=== PATIENT | male | born 2000 | race Caucasian/White ===

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

== ENCOUNTER 2023-08-20 15:56 | Outpatient (AMB) | payer BC, SELFPAY ==
--- NOTE | 2023-08-20 16:10 | A.OFFPC_ITS ---
Vital Signs 08/20/23 16:36 Height 5 ft 7.32 in Weight 163 lb 6 oz BMI 25.3 BP 128/70 Blood Pressure Location Lt brachial Position Sitting Pulse 65 Pulse Source Pulse Oximeter Pulse Oximetry (%) 97 Oxygen Delivery Method Room Air Intake Visit Reasons: New patient-Requesting physical Intake Note: MECHANIC CHIEF transfering care from Dr. Candy Whitaker, here to establish care with new PCP. Pt requesting a PE. Associate Financial Advisor Required: No Accompanied by: Self / Same As Patient Allergies No Known Allergies Allergy (Verified 08/20/23 17:06) Medication List - Last Reconciled 08/20/23 by Ang Rangel PA-C albuterol sulfate 90 mcg/actuation 2 puffs inhalation Q4-6H PRN montelukast 10 mg PO DAILY Tobacco use date assessed: 08/20/23 Dental Screening Dental Screen Date: 08/20/23 Did you have a dental visit in the last 12 months?: Yes Did you have a dental problem in the last 6 months where you did not have access to dental care?: No Was dental information given to patient?: Patient has dentist HPI New patient-Requesting physical HPI Details Patient is a 22-year-old male here today for new patient annual physical. Previous PCP was at a pediatrics office. Patient has a past medical history significant for mild persistent asthma. 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 .. Asthma: He reports his asthma is fairly well controlled, reports needing to use his albuterol inhaler or allergy medication many months. Vaccines: Up-to-date with COVID vaccine, tetanus vaccine, PFSH Medical History Deviated septum Mild persistent asthma Social History (Updated 08/20/23 @ 17:09 by Ang Rangel PA-C) Housing: House Alcohol intake: never Patient Tobacco Use Status: Never used Tobacco e-Cigarette/Vaping Use: Never Used service: No Current occupational status: employed Current occupation: [employer] Cognitive needs: No Hearing needs: No Vision needs: No Questionnaire PHQ-9 Over the last 2 weeks, how often have you been bothered by any of the following problems? 1. Little interest or pleasure in doing things: not at all 2. Feeling down, depressed, or hopeless: not at all 3. Trouble falling or staying asleep, or sleeping too much: not at all 4. Feeling tired or having little energy: not at all 5. Poor appetite or overeating: not at all 6. Feeling bad about yourself - or that you are a failure or have let yourself or your family down: not at all 7. Trouble concentrating on things, such as reading the newspaper or watching television: not at all 8. Moving or speaking so slowly that other people could have noticed. Or the opposite - being so fidgety or restless that you have been moving around a lot more than usual: not at all 9. Thoughts that you would be better off or of hurting yourself in some way: not at all Total score: 0 Depression Screening Interpretation: Negative Depression Screening Done: Yes 47630 - PHQ-9 Billing: Yes Source: Developed by Drs. Taj Foster, Caroline Garcia, David Lynn and colleagues, with an educational maranda from [employer]. Thrive Questionnaire Date Thrive assessed: 08/20/23 I am a: Patient What is your living situation today?: I have a steady place to live Within the past 12 months, did the food you bought not last and you didn't have the money to get more?: Never true Within the past 12 months, did you worry whether your food would run out before you got money to buy more?: Never true Do you have trouble paying for medicines?: No Do you have trouble getting transportation to medical appointments?: No Do you have trouble paying your heating and electricity bill?: No Do you have trouble taking care of your child, family member or friend?: No Do you have trouble with day-to-day activities such as bathing, preparing meals, shopping, managing finances, etc.?: No Are you currently unemployed and looking for a job?: No Are you interested in more education?: No Please select the resources that you would like help with: None Currently or been in a relationship where the following occur: no concerns reported AUDIT C Alcohol Use Questionnaire (AUDIT-C) 1. How often do you have a drink containing alcohol?: Never 3. How often do you have six or more drinks on one occasion?: Never Total Score: 0 XENA-7 AMB Questionnaire XENA-7 Date XENA - 7 assessed: 08/20/23 Feeling nervous, anxious, or on edge: 0 = Not at all Not being able to stop or control worryin = Not at all Worrying too much about different things: 0 = Not at all Trouble relaxin = Not at all Being so restless that it is hard to sit still: 0 = Not at all Becoming easily annoyed or irritable: 0 = Not at all Feeling afraid as if something awful might happen: 0 = Not at all Total XENA-7 score (0-4 normal; 5-9 mild; 10-14 moderate; 15-21 severe): 0 Source: Developed by Drs. Taj Foster, Caroline Garcia, David miller nd colleagues, with an educational maranda from [employer]. XENA-7 Assessment Billing XENA-7 Assessment Tool: XENA-7 Assessment 23675 ACT Questionnaire In the past 4 weeks, how much of the time did your asthma keep you from getting as much done at work, school or at home?: None of the time During the past 4 weeks, how often have you had shortness of breath?: Not at all During the past 4 weeks, how often did your asthma symptoms wake you up at night or earlier than usual in the morning?: Not at all During the past 4 weeks, how often have you had to use your rescue inhaler or nebulizer medication?: Not at all How would you rate your asthma control during the past 4 weeks?: Completely controlled ACT Interpretation: Negative Score: 25 Review of Systems Const Denies body aches, Denies chills, Denies excessive sweating, Denies fatigue, Denies fever(s) and Denies headache(s) Eyes Denies blurry vision ENT Denies dysphagia, Denies vertigo, Denies dizziness, Denies headache(s), Denies hearing loss and Denies tinnitus Card Denies chest pain, Denies chest pain with activity, Denies syncope, Denies irregular heart rhythm and Denies dyspnea Resp Denies chest congestion, Denies cough, Denies hemoptysis, Denies dyspnea and Denies wheezing GI Denies abdominal pain, Denies melena, Denies hematochezia, Denies coffee ground emesis, Denies dysphagia, Denies diarrhea, Denies nausea and Denies vomiting Denies difficulty urinating, Denies dysuria, Denies urinary frequency, Denies urinary hesitancy and Denies urinary urgency Musc Denies arthralgias, Denies limited range of motion, Denies muscle cramps and Denies muscle weakness Skin/Breast Denies rash and Denies skin ulcer Neuro Denies Abnormal speech present, Denies confusion, Denies vertigo, Denies dizziness, Denies syncope, Denies headache(s), Denies memory loss and Denies seizure-like activity Psych Denies anxiety, Denies confusion, Denies depression, Denies memory loss, Denies panic attacks and Denies paranoia Endo Denies excessive sweating, Denies fatigue, Denies flushing, Denies polydipsia and Denies polyuria Aller/Immun Denies wheezing Physical exam (Primary Care) Vital Signs: Last Vital Signs Pulse 65 08/20/23 16:36 BP 128/70 08/20/23 16:36 Pulse Ox 97 08/20/23 16:36 Oxygen Delivery Method Room Air 08/20/23 16:36 BMI result Body Mass Index 25.3 Tobacco/Smoking Status: Tobacco use Status Tobacco use date assessed 08/20/23 08/20/23 16:45 Patient Tobacco Use Status Never used Tobacco 08/20/23 17:09 e-Cigarette/Vaping Use Never Used 08/20/23 17:09 PHQ-9: PHQ-9 Score PHQ-9: Total score 0 08/20/23 17:12 Depression Screening Interpretation: Negative Thrive Assessment: Date of Thrive Assessment Date Thrive assessed 08/20/23 08/20/23 16:42 Currently or been in a relationship where the following occur: no concerns reported Const General: cooperative, comfortable, no acute distress, alert and awake; No confusion Orientation/consciousness: oriented to person, oriented to place, patient oriented x3 and No confusion HENMT Head: Yes normocephalic Ears: external ears normal and TM's normal bilaterally Face and sinus: No sinus tenderness Mouth: Normal oral and palatal mucosa present and tongue normal Teeth and gingiva: dentition normal and gingiva normal Throat: Yes posterior oropharynx normal, Yes tonsils normal and Yes uvula midline Eyes Conjunctivae: conjunctivae normal Sclerae: sclerae normal Pupils: Equal, round and reactive pupils present EOM: EOMs intact bilaterally Direct Ophthalmoscopy: No no photophobia Neck Neck: Yes no lymphadenopathy, No tender and Yes no JVD Thyroid: Thyroid normal Carotids: no bruits Chest Chest palpation & inspection: no tenderness Resp Effort & Inspection: normal respiratory effort, no audible wheezes, not labored and no stridor Auscultation: no crackles, no rales, no rhonchi and no wheezes Cardio Jugular venous distension: no JVD Rate: regular rate, not bradycardic and not tachycardic Rhythm: regular rhythm Bruits: no carotid bruits Peripheral pulses: Peripheral pulses 2+ throughout GI Inspection: Yes normal to inspection, No abdominal wall ecchymosis and No visible herniation Palpation (GI): Soft to palpation, nontender, no guarding, not rigid and No hepatosplenomegaly present Auscultation: normoactive bowel sounds General: Yes no CVA tenderness Back/Spine/Pelvis Back: no CVA tenderness and No back tenderness Cervical Spine: cervical ROM normal Thoracic/Lumbar Spine: thoracic and lumbar spine normal to inspection, straight leg raise negative bilaterally, No thoraco-lumbar ROM limited and No lumbar spinal tenderness Skin Lesions: no lesions Rashes: no rashes Wounds: no wounds Neuro General: oriented to person, oriented to place, patient oriented x3, CN's II-XI intact bilaterally and No confusion Cranial nerves: Yes Equal, round and reactive pupils present and Yes Normal accommodation reflex present Cognition (Neuro): normal cognition Speech: No Abnormal speech present Gait exam (Neuro): Normal gait present Motor exam (neuro): 5/5 motor strength present throughout Extrem Right upper extremity: full ROM; no cyanosis Left upper extremity: full ROM; no cyanosis Right lower extremity: no edema Left lower extremity: no edema Psych Appearance: grossly normal Mental Status: mental status grossly normal Affect: normal affect Attitude: cooperative Thought process: Normal thought process present Assessment and Plan Assessment & Plan (1) Annual physical exam: Code(s): Z00.00 - Encounter for general adult medical examination without abnormal findings (2) Mild persistent asthma: Comment: when younger then seemed resolved but developed sxs again in fall 2019 Code(s): J45.30 - Mild persistent asthma, uncomplicated Qualifiers: Asthma complication type: uncomplicated Qualified Code(s): J45.30 - Mild persistent asthma, uncomplicated Plan: As per HPI patient's asthma seems to be completely controlled. He barely has to use albuterol inhaler. Otherwise denies any recent acute exacerbations or nighttime awakenings with a sthma symptoms. Coding Level of Care Code New Pt Prev Care 18-39yr(15732 Diagnoses Annual physical exam Z00.00 Mild persistent asthma without complication J45.30 Asthma complication type: uncomplicated Additional Codes XENA-7 Assessment Billing - XENA-7 Assessment Tool: XENA-7 Assessment 82211 ([id number])
[2023-08-20 16:36] VITALS: BP 128/70; PULSE 65; O2SAT 97; BMI 25.3
== END 2023-08-20 17:16 | disposition home or self-care (01) ==
PROVIDERS: PCP Physician Assistant; Visit Provider Physician Assistant
DX: Z00.00 Encounter for general adult medical examination without abnormal findings (principal); J45.30 Mild persistent asthma, uncomplicated
CPT/HCPCS: 99385

== ENCOUNTER 2024-08-05 14:45 | Outpatient (AMB) | payer BC, SELFPAY ==
[2024-08-05 15:06] VITALS: BP 152/86; PULSE 87; O2SAT 99; BMI 26.9
--- NOTE | 2024-08-05 15:06 | A.OFFPC_ITS ---
Vital Signs 08/05/24 15:06 Height 5 ft 7.32 in Weight 173 lb 2 oz BMI 26.9 BP 152/86 H Blood Pressure Location Lt brachial Position Sitting Pulse 87 Pulse Source Pulse Oximeter Pulse Oximetry (%) 99 Oxygen Delivery Method Room Air Intake Visit Reasons: Blood pressure check Allergies No Known Allergies Allergy (Verified 08/05/24 15:06) Medication List - Last Reconciled 08/05/24 by Ang Rangel PA-C albuterol sulfate 90 mcg/actuation 2 puffs inhalation Q4-6H PRN montelukast 10 mg PO DAILY Tobacco use date assessed: 08/20/23 Dental Screening Dental Screen Date: 08/20/23 HPI Blood pressure check HPI Details Patient is a 23-year-old male here today for follow up. Patient has a past medical history of asthma. He is noted to have elevated blood pressure readings recently. Does report having systolic readings 120s to 160s depending on the reading.. He admits to caffeine intake and sodium intake. He denies any chest discomfort, dizziness or syncopal episodes. He does report having low-grade headache though can not attributes to his blood pressure. [facility] Medical History Deviated septum Mild persistent asthma Social History Housing: House Alcohol intake: never Patient Tobacco Use Status: Never used Tobacco e-Cigarette/Vaping Use: Never Used service: No Current occupational status: employed Current occupation: [employer] Cognitive needs: No Hearing needs: No Vision needs: No Questionnaire Thrive Questionnaire Date Thrive assessed: 08/20/23 XENA-7 AMB Questionnaire XENA-7 Date XENA - 7 assessed: 08/20/23 Source: Developed by Drs. Taj Foster, Caroline Garcia, David Lynn and colleagues, with an educational maranda from [email or web address]. Review of Systems Const Reports headache(s) Eyes Denies loss of vision ENT Denies vertigo, Denies dizziness, Reports headache(s) and Denies sore throat Card Denies chest pain, Denies leg edema and Denies lightheadedness Resp Denies cough, Denies hemoptysis and Denies wheezing GI Denies abdominal pain, Denies melena, Denies constipation, Denies diarrhea and Denies vomiting Denies dysuria, Denies urinary frequency and Denies urinary urgency Musc Denies arthralgias, Denies joint swelling, Denies numbness and Denies tingling Neuro Denies Abnormal speech present, Denies behavioral changes, Denies vertigo, Denies dizziness, Reports headache(s), Denies loss of vision, Denies memory loss, Denies numbness and Denies tingling Psych Denies anxiety, Denies behavioral changes, Denies depression, Denies memory loss and Denies panic attacks Lio/Lymph Denies easy bleeding and Denies easy bruising Aller/Immun Denies wheezing Physical exam (Primary Care) Vital Signs: Last Vital Signs Pulse 87 08/05/24 15:06 BP 152/86 H 08/05/24 15:06 Pulse Ox 99 08/05/24 15:06 Oxygen Delivery Method Room Air 08/05/24 15:06 BMI result Body Mass Index 26.9 Tobacco/Smoking Status: Tobacco use Status Tobacco use date assessed 08/20/23 08/05/24 15:07 Patient Tobacco Use Status Never used Tobacco 08/05/24 15:07 e-Cigarette/Vaping Use Never Used 08/05/24 15:07 Thrive Assessment: Date of Thrive Assessment Date Thrive assessed 08/20/23 08/05/24 15:07 Const General: healthy appearing, no acute distress, alert and awake Nutritional Appearance: well nourished Orientation/consciousness: oriented to person, oriented to place and oriented to time HENMT Ears: TM's normal bilaterally General nose exam: Normal nasal mucous membranes and turbinates present Eyes Conjunctivae: conjunctivae normal Sclerae: sclerae normal Pupils: Equal, round and reactive pupils present Neck Neck: Yes no lymphadenopathy and Yes no JVD Thyroid: Thyroid normal Carotids: no bruits Resp Effort & Inspection: normal respiratory effort and not tachypneic Auscultation: no crackles, no rales, no rhonchi and no wheezes Cardio Rate: regular rate Rhythm: regular rhythm Heart sounds: no murmurs and normal S1 and S2 GI Palpation (GI): Soft to palpation, nontender, no hepatomegaly and no splenomegaly Auscultation: normal bowel sounds Skin General skin exam: no rashes or lesions noted and dry skin Neuro General: oriented to person, oriented to place and oriented to time Cranial nerves: Yes Equal, round and reactive pupils present Speech: No Abnormal speech present Gait exam (Neuro): Normal gait present Motor exam (neuro): no tremor noted Extrem Right upper extremity: full ROM Left upper extremity: full ROM Right lower extremity: full ROM; no edema Left lower extremity: full ROM; no edema Psych Mental Status: mental status grossly normal Speech and movement: Normal speech and movement present Affect: normal affect Attitude: cooperative Thought process: Normal thought process present Coding Level of Care Code Est Pt Level 3 (23802) Diagnoses Elevated blood pressure reading R03.0 Screening for diabetes mellitus (DM) Z13.1 Assessment & Plan Assessment & Plan (1) Elevated blood pressure reading: Code(s): R03.0 - Elevated blood-pressure reading, without diagnosis of hypertension Category: Medical Plan: Noted elevated blood pressure readings over last 2 months. Has not tried to reduce his caffeine or sodium as of yet. Will commence blood pressure monitoring and lifestyle dietary changes. Currently under some stress as he is in 1st year of his physical therapy program. If still elevated in the next 8 weeks will consider starting hydrochlorothiazide blood pressure control. (2) Screening for diabetes mellitus (DM): Code(s): Z13.1 - Encounter for screening for diabetes mellitus Category: Medical Plan: As per HPI
== END 2024-08-05 15:22 | disposition home or self-care (01) ==
PROVIDERS: PCP Physician Assistant; Visit Provider Physician Assistant
DX: R03.0 Elevated blood-pressure reading, without diagnosis of hypertension (principal); Z13.1 Encounter for screening for diabetes mellitus

== ENCOUNTER → 2024-09-30 09:55 | Outpatient (REF) | payer BC, SELFPAY ==
--- NOTE | 2024-09-30 09:59 | ECG_ITS ---
Test Reason : elevated BP Blood Pressure : */* mmHG Vent. Rate : 77 BPM Atrial Rate : 77 BPM P-R Int : 138 ms QRS Dur : 90 ms QT Int : 386 ms P-R-T Axes : 69 28 12 degrees QTcB Int : 436 ms Normal sinus rhythm with sinus arrhythmia Normal ECG No previous ECGs available Referred By: Ang Rangel Electronically Signed By: DEBBIE HOUGH
== END ==
LOC: HO.CARD 09:55
PROVIDERS: PCP Physician Assistant; Visit Provider Physician Assistant
DX: R03.0 Elevated blood-pressure reading, without diagnosis of hypertension (principal)
CPT/HCPCS: 93005; 96127

== ENCOUNTER → 2024-09-30 09:59 | Outpatient (BNV) | payer BC, SELFPAY | PROVIDERS: PCP Physician Assistant; Visit Provider Internal Medicine | DX: I49.9 Cardiac arrhythmia, unspecified (principal) | CPT/HCPCS: 93010 ==

== ENCOUNTER 2024-09-30 10:42 | Outpatient (AMB) | payer BC, SELFPAY ==
--- NOTE | 2024-09-30 10:52 | A.OFFPC_ITS ---
Vital Signs 09/30/24 10:56 Height 5 ft 7.32 in Weight 179 lb BMI 27.8 BP 122/60 Blood Pressure Location Lt brachial Position Sitting Pulse 80 Pulse Source Pulse Oximeter Pulse Oximetry (%) 98 Oxygen Delivery Method Room Air Intake Visit Reasons: f/u Blood pressure Electrical Controls Assembler Required: No Accompanied by: Self / Same As Patient Allergies No Known Allergies Allergy (Verified 09/30/24 11:06) Medication List - Last Reconciled 09/30/24 by Ang Rangel PA-C albuterol sulfate 90 mcg/actuation 2 puffs inhalation Q4-6H PRN hydrochlorothiazide 12.5 mg PO DAILY 90 days montelukast 10 mg PO DAILY Tobacco use date assessed: 09/30/24 Dental Screening Dental Screen Date: 09/30/24 Did you have a dental visit in the last 12 months?: Yes Did you have a dental problem in the last 6 months where you did not have access to dental care?: No Was dental information given to patient?: Patient has dentist HPI f/u Blood pressure HPI Details The patient is a 23-year-old male presenting for a follow-up visit regarding the management of essential hypertension. Previously, the patient had elevated blood pressure readings, necessitating the initiation of hydrochlorothiazide therapy. Since starting the medication, the patient's blood pressure has improved significantly, with readings currently around 110-121/60-70 mmHg. The patient reported low-grade headaches before treatment, which have since resolved with the initiation of antihypertensive therapy. There is a noted family history of hypertension. No further concerns were reported regarding his current hypertension management. The patient has a history of asthma and uses an albuterol inhaler as needed. [facility] Medical History Deviated septum Mild persistent asthma Social History Housing: House Alcohol intake: never Patient Tobacco Use Status: Never used Tobacco e-Cigarette/Vaping Use: Never Used service: No Current occupational status: employed Current occupation: Evangelist Cognitive needs: No Hearing needs: No Vision needs: No Questionnaire PHQ-9 Over the last 2 weeks, how often have you been bothered by any of the following problems? 1. Little interest or pleasure in doing things: not at all 2. Feeling down, depressed, or hopeless: not at all 3. Trouble falling or staying asleep, or sleeping too much: not at all 4. Feeling tired or having little energy: not at all 5. Poor appetite or overeating: not at all 6. Feeling bad about yourself - or that you are a failure or have let yourself or your family down: not at all 7. Trouble concentrating on things, such as reading the newspaper or watching television: not at all 8. Moving or speaking so slowly that other people could have noticed. Or the opposite - being so fidgety or restless that you have been moving around a lot more than usual: not at all 9. Thoughts that you would be better off or of hurting yourself in some way: not at all Total score: 0 Depression Screening Interpretation: Negative Depression Screening Done: Yes 14018 - PHQ-9 Billing: Yes Source: Developed by Drs. Taj Foster, Caroline Garcia, David Lynn and colleagues, with an educational maranda from [employer]. Thrive Questionnaire Date Thrive assessed: 09/30/24 I am a: Patient What is your living situation today?: I have a steady place to live Within the past 12 months, did the food you bought not last and you didn't have the money to get more?: Never true Within the past 12 months, did you worry whether your food would run out before you got money to buy more?: Never true Do you have trouble paying for medicines?: No Do you have trouble getting transportation to medical appointments?: No Do you have trouble paying your heating and electricity bill?: No Do you have trouble taking care of your child, family member or friend?: No Do you have trouble with day-to-day activities such as bathing, preparing meals, shopping, managing finances, etc.?: No Are you currently unemployed and looking for a job?: No Are you interested in more education?: No Please select the resources that you would like help with: None Currently or been in a relationship where the following occur: No concerns reported THRIVE Score: 0 AUDIT C Alcohol Use Questionnaire (AUDIT-C) 1. How often do you have a drink containing alcohol?: Never 3. How often do you have six or more drinks on one occasion?: Never Total Score: 0 XENA-7 AMB Questionnaire XENA-7 Date XENA - 7 assessed: 09/30/24 Feeling nervous, anxious, or on edge: 0 = Not at all Not being able to stop or control worryin = Not at all Worrying too much about different things: 0 = Not at all Trouble relaxin = Not at all Being so restless that it is hard to sit still: 0 = Not at all Becoming easily annoyed or irritable: 0 = Not at all Feeling afraid as if something awful might happen: 0 = Not at all Total XENA-7 score (0-4 normal; 5-9 mild; 10-14 moderate; 15-21 severe): 0 Source: Developed by Drs. Taj Foster, Caroline Garcia, David Lynn and colleagues, with an educational maranda from [employer]. XENA-7 Assessment Billing XENA-7 Assessment Tool: XENA-7 Assessment 24455 Review of Systems Const Denies headache(s) Eyes Denies loss of vision ENT Denies vertigo, Denies dizziness, Denies headache(s) and Denies sore throat Card Denies chest pain, Denies leg edema and Denies lightheadedness Resp Denies cough, Denies hemoptysis and Denies wheezing GI Denies abdominal pain, Denies melena, Denies constipation, Denies diarrhea and Denies vomiting Denies dysuria, Denies urinary frequency and Denies urinary urgency Musc Denies arthralgias, Denies joint swelling, Denies numbness and Denies tingling Neuro Denies Abnormal speech present, Denies behavioral changes, Denies vertigo, Denies dizziness, Denies headache(s), Denies loss of vision, Denies memory loss, Denies numbness and Denies tingling Psych Denies anxiety, Denies behavioral changes, Denies depression, Denies memory loss and Denies panic attacks Lio/Lymph Denies easy bleeding and Denies easy bruising Aller/Immun Denies wheezing Physical exam (Primary Care) Vital Signs: Last Vital Signs Pulse 80 09/30/24 10:56 BP 122/60 09/30/24 10:56 Pulse Ox 98 09/30/24 10:56 Oxygen Delivery Method Room Air 09/30/24 10:56 BMI result Body Mass Index 27.8 Tobacco/Smoking Status: Tobacco use Status Tobacco use date assessed 09/30/24 09/30/24 11:02 Patient Tobacco Use Status Never used Tobacco 09/30/24 10:52 e-Cigarette/Vaping Use Never Used 09/30/24 10:52 PHQ-9: PHQ-9 Score PHQ-9: Total score 0 09/30/24 10:58 Depression Screening Interpretation: Negative Thrive Assessment: Date of Thrive Assessment Date Thrive assessed 09/30/24 09/30/24 10:58 Currently or been in a relationship where the following occur: No concerns reported Const General: healthy appearing, no acute distress, alert and awake Nutritional Appearance: well nourished Orientation/consciousness: oriented to person, oriented to place and oriented to time HENMT Ears: TM's normal bilaterally General nose exam: Normal nasal mucous membranes and turbinates present Eyes Conjunctivae: conjunctivae normal Sclerae: sclerae normal Pupils: Equal, round and reactive pupils present Neck Neck: Yes no lymphadenopathy and Yes no JVD Thyroid: Thyroid normal Carotids: no bruits Resp Effort & Inspection: normal respiratory effort and not tachypneic Auscultation: no crackles, no rales, no rhonchi and no wheezes Cardio Rate: regular rate Rhythm: regular rhythm Heart sounds: no murmurs and normal S1 and S2 GI Palpation (GI): Soft to palpation, nontender, no hepatomegaly and no splenomegaly Auscultation: normal bowel sounds Skin General skin exam: no rashes or lesions noted and dry skin Neuro General: oriented to person, oriented to place and oriented to time Cranial nerves: Yes Equal, round and reactive pupils present Speech: No Abnormal speech present Gait exam (Neuro): Normal gait present Motor exam (neuro): no tremor noted Extrem Right upper extremity: full ROM Left upper extremity: full ROM Right lower extremity: full ROM; no edema Left lower extremity: full ROM; no edema Psych Mental Status: mental status grossly normal Speech and movement: Normal speech and movement present Affect: normal affect Attitude: cooperative Thought process: Normal thought process present Coding Level of Care Code Est Pt Level 3 (86390) Diagnoses Primary hypertension I10 Hypertension type: primary hypertension Additional Codes XENA-7 Assessment Billing - XENA-7 Assessment Tool: XENA-7 Assessment 53948 ([id number]) PHQ-9 - 52812 - PHQ-9 Billing: Yes ([id number]) Assessment & Plan Assessment & Plan (1) HTN (hypertension): Code(s): I10 - Essential (primary) hypertension Category: Medical Qualifiers: Hypertension type: primary hypertension Qualified Code(s): I10 - Essential (primary) hypertension Plan: Continue hydrochlorothiazide for blood pressure control and reassess in six months. - Educate on maintaining a healthy lifestyle with attention to diet and exercise. - Obtain fasting blood work to assess kidney function and electrolytes before the next visit. Orders: Orders Microalbumin, Random (w Creat) Today I10 - Essential (primary) hypertension Comprehensive [place]. Panel Fast Today I10 - Essential (primary) hypertension Complete Blood Count no Diff Today I10 - Essential (primary) hypertension Medications: Refilled albuterol sulfate 90 mcg/actuation 2 puffs inhalation Q4-6H PRN 8.5 grams 2RF shortness of breath or wheezing J45.909 - Unspecified asthma, uncomplicated Discontinued montelukast Discontinued Reason: Doctor's Order 10 mg PO DAILY 30 tabs 5RF
[2024-09-30 10:56] VITALS: BP 122/60; PULSE 80; O2SAT 98; BMI 27.8
== END 2024-09-30 11:15 | disposition home or self-care (01) ==
PROVIDERS: PCP Physician Assistant; Visit Provider Physician Assistant
DX: I10 Essential (primary) hypertension (principal)

== ENCOUNTER 2025-03-30 15:34 | Outpatient (AMB) | payer BC, SELFPAY ==
--- OUTSIDE RECORDS SUMMARY | 2025-03-30 15:39 | XMS_ITS | Encounter Summary ---
Author Organization [facility] Address [address] [place] [id number] Phone Care Team Providers Care Promotions Specialist Name Role Phone Unavailable Primary Care Provider Unavailabl e Encounter Details Date Type Department Care Team (Late st Contact Info) Description 08/09/2016 Documentation [facility] Family Medicine [address] [place] [address] Family Medicine, Physician [address] [place] [address] Social History Tobacco Use Types Packs/Day Years Used Date Smoking Tobacco: Never Comments:Never smoker Sex and Gender Information Value Date Recorded Sex Assigned at Not on file Legal Sex Male 5:00 PM EDT Gender Identity Not on file Sexual Orientation Not on file documented as of this encounter Plan of Treatment Not on file documented as of this encounter Visit Diagnoses Not on filedocumented in this encounter
--- OUTSIDE RECORDS SUMMARY | 2025-03-30 15:39 | XMS_ITS | Clinical Summary ---
Author Organization [facility] Address [address] [place] [address] Care Team Providers Care Vegetable Farmer Name Role Phone Unavailable Primary Care Provider Unavailabl e Medications No known medications Social History Tobacco Use Types Packs/Day Years Used Date Smoking Tobacco: Never Smokeless Tobacco: Never Alcohol Use Standard Drinks/Week Comments Not Currently 0 (1 standard drink = 0.6 oz pur e alcohol) Sex and Gender Information Value Date Recorded Sex Assigned at Not on file Gender Identity Not on file Sexual Orientation Not on file Job Start Date Occupation Industry Not on file Not on file Not on file Last Filed Vital Signs Vital Sign Reading Time Taken Comments Blood Pressure - - Pulse - - Temperature - - Respiratory Rate - - Oxygen Saturation - - Inhaled Oxygen Concentration - - Weight 63.5 kg (140 lb) 06/14/2021 8:58 AM EDT Height 170.2 cm (5' 7 ) 06/14/2021 8:58 AM EDT Body Mass Index 21.93 06/14/2021 8:58 AM EDT Plan of Treatment Health Maintenance Due Date Last Done Comments Hepatitis B Vaccines (1 of 3 - 3-dose series) 2002 Hepatitis C Screening 2002 COVID-19 Vaccine (#1) 04/27/2003 Depression Screening 2014 Preventative Health Evaluation 2020 DTap / Tdap / Td (7 - Td or Tdap) 07/15/2024 07/15/2014, 11/13/2006, 05/18/2004, Additional history exists Influenza Vaccine (#1) 2025 8, 08/28/2017, 08/08/2016, Additional history exists Pneumococcal Vaccine Aged Out 05/24/2003, 03/11/2003, 2002 No longer eligible based on patient's age to complete this topic RSV Ped < 20 months Aged Out No longe r eligible based on patient's age to complete this topic
[2025-03-30 15:45] VITALS: BP 132/78; PULSE 95; O2SAT 98; BMI 27.8
--- NOTE | 2025-03-30 15:45 | A.OFFPC_ITS ---
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 Accompanied by: Self / Same As Patient Allergies No Known Allergies Allergy (Verified 03/30/25 16:28) Medication List - Last Reconciled 03/30/25 by Ang Rangel PA-C albuterol sulfate 90 mcg/actuation 2 puffs inhalation Q4-6H PRN hydrochlorothiazide 12.5 mg PO DAILY 90 days Tobacco use date assessed: 09/30/24 Dental Screening Dental Screen Date: 03/30/25 Did you have a dental visit in the last 12 months?: Yes Did you have a dental problem in the last 6 months where you did not have access to dental care?: No Was dental information given to patient?: Patient has dentist HPI Annual Exam HPI Details Patient is a 24-year-old male here today for annual physical. Patient has a past medical history significant for asthma and elevated blood pressure Hypertension: Blood pressure acceptable today in office. Asthma: Patient reports his asthma has been well controlled with only limited p.r.n. use of his albuterol inhaler. Vaccines: Needs up-to-date Tdap, up-to-date with flu and COVID vaccines [facility] Medical History Deviated septum Mild persistent asthma Social History (Updated 03/30/25 @ 16:31 by Ang Rangel PA-C) Housing: House Alcohol intake: never Patient Tobacco Use Status: Never used Tobacco e-Cigarette/Vaping Use: Never Used service: No Current occupational status: employed Current occupation: part time receptionist student Cognitive needs: No Hearing needs: No Vision needs: No Questionnaire PHQ-9 Over the last 2 weeks, how often have you been bothered by any of the following problems? 1. Little interest or pleasure in doing things: not at all 2. Feeling down, depressed, or hopeless: not at all 3. Trouble falling or staying asleep, or sleeping too much: not at all 4. Feeling tired or having little energy: not at all 5. Poor appetite or overeating: not at all 6. Feeling bad about yourself - or that you are a failure or have let yourself or your family down: not at all 7. Trouble concentrating on things, such as reading the newspaper or watching television: not at all 8. Moving or speaking so slowly that other people could have noticed. Or the op posite - being so fidgety or restless that you have been moving around a lot more than usual: not at all 9. Thoughts that you would be better off or of hurting yourself in some way: not at all Total score: 0 Depression Screening Interpretation: Negative Depression Screening Done: Yes 87818 - PHQ-9 Billing: Yes Source: Developed by Drs. Taj Foster, Caroline Garcia, David Lynn and colleagues, with an educational maranda from [employer]. Thrive Questionnaire Date Thrive assessed: 03/30/25 I am a: Patient What is your living situation today?: I have a steady place to live Within the past 12 months, did the food you bought not last and you didn't have the money to get more?: Never true Within the past 12 months, did you worry whether your food would run out before you got money to buy more?: Never true Do you have trouble paying for medicines?: No Do you have trouble getting transportation to medical appointments?: No Do you have trouble paying your heating and electricity bill?: No Do you have trouble taking care of your child, family member or friend?: No Do you have trouble with day-to-day activities such as bathing, preparing meals, shopping, managing finances, etc.?: No Are you currently unemployed and looking for a job?: No Are you interested in more education?: No Please select the resources that you would like help with: None Currently or been in a relationship where the following occur: No concerns reported THRIVE Score: 0 AUDIT C Alcohol Use Questionnaire (AUDIT-C) 1. How often do you have a drink containing alcohol?: Never 3. How often do you have six or more drinks on one occasion?: Never Total Score: 0 XENA-7 AMB Questionnaire XENA-7 Date XENA - 7 assessed: 03/30/25 Feeling nervous, anxious, or on edge: 3 = Nearly every day Not being able to stop or control worryin = More than half the days Worrying too much about different things: 3 = Nearly every day Trouble relaxin = Nearly every day Being so restless that it is hard to sit still: 1 = Several days Becoming easily annoyed or irritable: 1 = Several days Feeling afraid as if something awful might happen: 0 = Not at all Total XENA-7 score (0-4 normal; 5-9 mild; 10-14 moderate; 15-21 severe): 13 Source: Developed by Drs. Taj Foster, Caroline Garcia, David Lynn and colleagues, with an educational maranda from [employer]. XENA-7 Assessment Billing XENA-7 Assessment Tool: XENA-7 Assessment 19816 Review of Systems Const Denies body aches, Denies chills, Denies excessive sweating, Denies fatigue, Denies fever(s) and Denies headache(s) Eyes Denies blurry vision ENT Denies dysphagia, Denies vertigo, Denies dizziness, Denies headache(s), Denies hearing loss and Denies tinnitus Card Denies chest pain, Denies chest pain with activity, Denies syncope, Denies irregular heart rhythm and Denies dyspnea Resp Denies chest congestion, Denies cough, Denies hemoptysis, Denies dyspnea and Denies wheezing GI Denies abdominal pain, Denies melena, Denies hematochezia, Denies coffee ground emesis, Denies dysphagia, Denies diarrhea, Denies nausea and Denies vomiting Denies difficulty urinating, Denies dysuria, Denies urinary frequency, Denies urinary hesitancy and Denies urinary urgency Musc Denies arthralgias, Denies limited range of motion, Denies muscle cramps and Denies muscle weakness Skin/Breast Denies rash and Denies skin ulcer Neuro Denies Abnormal speech present, Denies confusion, Denies vertigo, Denies dizziness, Denies syncope, Denies headache(s), Denies memory loss and Denies sei zure-like activity Psych Denies anxiety, Denies confusion, Denies depression, Denies memory loss, Denies panic attacks and Denies paranoia Endo Denies excessive sweating, Denies fatigue, Denies flushing, Denies polydipsia and Denies polyuria Aller/Immun Denies wheezing Physical exam (Primary Care) Vital Signs: Last Vital Signs Pulse 95 03/30/25 15:45 BP 132/78 03/30/25 15:45 Pulse Ox 98 03/30/25 15:45 Oxygen Delivery Method Room Air 03/30/25 15:45 BMI result Body Mass Index 27.8 Tobacco/Smoking Status: Tobacco use Status Tobacco use date assessed 09/30/24 03/30/25 15:47 Patient Tobacco Use Status Never used Tobacco 03/30/25 15:47 e-Cigarette/Vaping Use Never Used 03/30/25 15:47 PHQ-9: PHQ-9 Score PHQ-9: Total score 0 03/30/25 15:47 Depression Screening Interpretation: Negative Thrive Assessment: Date of Thrive Assessment Date Thrive assessed 03/30/25 03/30/25 15:47 Currently or been in a relationship where the following occur: No concerns reported Const General: cooperative, comfortable, no acute distress, alert and awake; No confusion Orientation/consciousness: oriented to person, oriented to place, patient oriented x3 and No confusion HENMT Head: Yes normocephalic Ears: external ears normal and TM's normal bilaterally Face and sinus: No sinus tenderness Mouth: Normal oral and palatal mucosa present and tongue normal Teeth and gingiva: dentition normal and gingiva normal Throat: Yes posterior oropharynx normal, Yes tonsils normal and Yes uvula midline Eyes Conjunctivae: conjunctivae normal Sclerae: sclerae normal Pupils: Equal, round and reactive pupils present EOM: EOMs intact bilaterally Direct Ophthalmoscopy: No no photophobia Neck Neck: Yes no lymphadenopathy, No tender and Yes no JVD Thyroid: Thyroid normal Carotids: no bruits Chest Chest palpation & inspection: no tenderness Resp Effort & Inspection: normal respiratory effort, no audible wheezes, not labored and no stridor Auscultation: no crackles, no rales, no rhonchi and no wheezes Cardio Jugular venous distension: no JVD Rate: regular rate, not bradycardic and not tachycardic Rhythm: regular rhythm Bruits: no carotid bruits Peripheral pulses: Peripheral pulses 2+ throughout GI Inspection: Yes normal to inspection, No abdominal wall ecchymosis and No visible herniation Palpation (GI): Soft to palpation, nontender, no guarding, not rigid and No hepatosplenomegaly present Auscultation: normoactive bowel sounds General: Yes no CVA tenderness Back/Spine/Pelvis Back: no CVA tenderness and No back tenderness Cervical Spine: cervical ROM normal Thoracic/Lumbar Spine: thoracic and lumbar spine normal to inspection, straight leg raise negative bilaterally, No thoraco-lumbar ROM limited and No lumbar spinal tenderness Skin Lesions: no lesions Rashes: no rashes Wounds: no wounds Neuro General: oriented to person, oriented to place, patient oriented x3, CN's II-XI intact bilaterally and No confusion Cranial nerves: Yes Equal, round and reactive pupils present and Yes Normal accommodation reflex present Cognition (Neuro): normal cognition Speech: No Abnormal speech present Gait exam (Neuro): Normal gait present Motor exam (neuro): 5/5 motor strength present throughout Extrem Right upper extremity: full ROM; no cyanosis Left upper extremity: full ROM; no cyanosis Right lower extremity: no edema Left lower extremity: no edema Psych Appearance: grossly normal Mental Status: mental status grossly normal Affect: normal affect Attitude: cooperative Thought process: Normal thought process present Coding Level of Care Code Est Pt Prev Care 18-39y(67249) Diagnoses Annual physical exam Z00.00 Primary hypertension I10 Hypertension type: primary hypertension Mild persistent asthma without complication J45.30 Asthma complication type: uncomplicated Additional Codes XENA-7 Assessment Billing - XENA-7 Assessment Tool: XENA-7 Assessment 12728 ([id number]) PHQ-9 - 72508 - PHQ-9 Billing: Yes ([id number]) Assessment & Plan Assessment & Plan (1) Annual physical exam: Code(s): Z00.00 - Encounter for general adult medical examination without abnormal findings Category: Medical Plan: As per HPI (2) HTN (hypertension): Code(s): I10 - Essential (primary) hypertension Category: Medical Qualifiers: Hypertension type: primary hypertension Qualified Code(s): I10 - Essential (primary) hypertension Plan: Patient's blood pressure acceptable today in office, consistent with his use of hydrochlorothiazide. Goal blood pressure to remain below 140/90 (3) Mild persistent asthma: Comment: when younger then seemed resolved but developed sxs again in fall 2019 Code(s): J45.30 - Mild persistent asthma, uncomplicated Category: Medical Qualifiers: Asthma complication type: uncomplicated Qualified Code(s): J45.30 - Mild persistent asthma, uncomplicated Plan: Patient reports he only seldomly uses his albuterol inhaler. He denies any nighttime awakenings with asthma symptoms or recent asthma exacerbations. Orders: Orders TDaP Immunization Today Z23 - Encounter for immunization Medications: New Boostrix Tdap (diphth,pertus(acell),tetanus) 0.5 mL IM ONCE 0.5 mL 0RF NS Z23 - Encounter for immunization Refilled hydrochlorothiazide 12.5 mg PO DAILY 90 tabs 1RF 90 days R03.0 - Elevated blood-pressure reading, without diagnosis of hypertension albuterol sulfate 90 mcg/actuation 2 puffs inhalation Q4-6H PRN 8.5 grams 2RF shortness of breath or wheezing J45.909 - Unspecified asthma, uncomplicated Patient Instructions: Goal: Goal blood pressure to remain below 140/90 Barriers: Adherence to physical activity and healthy eating habits
== END 2025-03-30 17:30 | disposition home or self-care (01) ==
LOC: HO.HMCH 15:35
PROVIDERS: PCP Physician Assistant; Visit Provider Physician Assistant
DX: Z00.00 Encounter for general adult medical examination without abnormal findings (principal); I10 Essential (primary) hypertension; J45.30 Mild persistent asthma, uncomplicated; Z23 Encounter for immunization

== ENCOUNTER → 2025-03-30 15:34 | Outpatient (BNVA) | payer BC, SELFPAY | PROVIDERS: PCP Physician Assistant; Visit Provider Physician Assistant | DX: Z00.00 Encounter for general adult medical examination without abnormal findings (principal); I10 Essential (primary) hypertension; J45.30 Mild persistent asthma, uncomplicated; R03.0 Elevated blood-pressure reading, without diagnosis of hypertension; Z23 Encounter for immunization | CPT/HCPCS: 90471; 90715; 96127 ==

== ENCOUNTER 2025-04-25 09:52 | Outpatient (AMB) | payer BC, SELFPAY ==
--- NOTE | 2025-04-25 09:56 | MHC.OFFVIS ---
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 He is young LD 24-year-old male who last May started noticing significantly elevated blood pressures systolic blood pressure in the 170s. He was having symptoms of dizziness, sweating, had heavy feeling. Especially when he was doing heavy lifting for his exercise he would notice significant pain in both his ears and had unbearable headache. Patient since then has been diagnose with hypertension. Started on hydrochlorothiazide therapy at 12.5 mg daily. This is improved his symptoms however his blood pressure is not adequately controlled with systolic blood pressure still in the 140-150 range. He says he drinks enough fluid about a gal a day but also does not watch the salt intake in his diet. He has family history of hypertension in his paternal grandfather as well as paternal aunts but not at a young age. He denies any [id number]-kfm-ikuzqgd medications or any stimulant use. Denies any significant alcohol use or smoking. Patient has not had any workup for secondary hypertension. He does have deviated nasal septum history and says that it although he sleeps 8 hours a night he does feel headaches when he wakes up in the morning. He does also has some daytime tiredness. He also has significant amount of stress related to his course work for physical therapy. As a result he has been prescribed some antianxiety medications has been taking it and that is helping his anxiety although blood pressure still remains elevated. He denies any exertional chest pain or shortness of breath. Denies any prolonged palpitation irregular heartbeat. No orthopnea, PND, leg edema. 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 Cognitive needs: No Hearing needs: No Vision needs: No Review of Systems Const Denies chills, Denies daytime sleepiness, Denies fatigue, Denies fever(s), Denies frequent falls, Denies poor appetite, Denies snoring, Denies stops breathing during sleep, Denies weakness, Denies weight gain and Denies weight loss Eyes Denies loss of vision ENT Denies dizziness and Denies hearing loss Card Denies chest pain, Denies claudication, Denies leg edema, Denies lightheadedness, Denies palpitations, Denies dyspnea, Denies dyspnea on exertion and Denies orthopnea Resp Denies cough, Denies excessive phlegm production, Denies dyspnea, Denies dyspnea on exertion, Denies snoring and Denies wheezing GI Denies abdominal pain, Denies hematochezia, Denies change in bowel habits, Denies nausea and Denies vomiting Denies dysuria and Denies urinary frequency Musc Denies arthralgias, Denies muscle weakness, Denies numbness and Denies other (frequent falls) Skin/Breast Denies nail changes and Denies rash Neuro Denies Abnormal speech present, Denies dizziness, Denies frequent falls, Denies loss of vision, Denies memory loss, Denies numbness and Denies weakness Psych Denies depression and Denies memory loss Endo Denies fatigue and Denies palpitations Lio/Lymph Reports easy bruising and Reports other (anemia) Aller/Immun Denies wheezing Physical Exam Vital Signs: Last Vital Signs Pulse 69 04/25/25 10:07 BP 143/83 H 04/25/25 10:07 BMI result Body Mass Index 28.0 Const General: cooperative, comfortable, no acute distress, well developed, alert, awake and Physically active Nutritional Appearance: average body habitus and well nourished Orientation/consciousness: patient oriented x3 Limitations: no limitations HEENT Head: Yes normocephalic and Yes atraumatic Neck Neck: Yes trachea midline, Yes supple and Yes no JVD Resp Effort & Inspection: normal respiratory effort Auscultation: clear to auscultation bilaterally Cardio Jugular venous distension: no JVD Palpation: normal PMI Rate: regular rate Rhythm: regular rhythm Heart sounds: S1 normal heart sound present, S2 normal heart sound present, no click, no gallops, no murmurs and no rubs GI Auscultation: normal bowel sounds Skin General skin exam: no rashes or lesions noted Neuro General: patient oriented x3 and no focal motor deficits Speech: No Abnormal speech present Extrem General: Yes no clubbing, cyanosis or edema Psych Appearance: grossly normal Office Procedures EKG Details: EKG shows baseline wander with normal sinus rhythm with sinus arrhythmia otherwise normal EKG [id number], Complete Assessment & Plan Assessment & Plan (1) HTN (hypertension): Code(s): I10 - Essential (primary) hypertension Category: Medical Qualifiers: Hypertension type: primary hypertension Qualified Code(s): I10 - Essential (primary) hypertension Plan: Early-onset hypertension in young male without any obvious clear trigger or risk factors with possible family history and could represent early onset hypertension. However secondary causes for hypertension need to be ruled out especially endocrine causes as well as causes related to sleep related disorder in breathing. Also renal artery stenosis needs to be ruled out. Discussed with him about the same. He is currently not utilizing any hormones for weight building. Discussed with him about use of anabolic hormones. Importance of good blood pressure control and custodial was discussed to protect from end-organ damage. Would suggest an echocardiogram to evaluate LV structure and function to evaluate for LVH. His blood pressure is currently not well optimized and would suggest him to increase hydrochlorothiazide to 25 mg daily. Advised to monitor blood pressure at home and maintain a log. Will bring him back in 2 weeks for blood pressure check in the office. Goal blood pressure less than 120/80 was discussed with him. I have advised him to watch salt in his diet and also maintain adequate hydration. Understands agrees. Have ordered a home sleep study as well as renal duplex and hormonal studies to evaluate for secondary cause of hypertension. Will follow up in the clinic in 2 months time, sooner p.r.n.. Thank you for allowing me to partake in his care Orders: Orders Aldost/Renin Today I10 - Essential (primary) hypertension CA echo transthoracic complete Today I10 - Essential (primary) hypertension RT home sleep study Today I10 - Essential (primary) hypertension, R40.0 - Somnolence Metanephrines, Plasma Today I10 - Essential (primary) hypertension Cortisol Random Today I10 - Essential (primary) hypertension Aldosterone Today I10 - Essential (primary) hypertension TSH reflex Free T4 Today I10 - Essential (primary) hypertension US renal doppler Today I10 - Essential (primary) hypertension Medications: New hydrochlorothiazide 25 mg PO DAILY 30 tabs 5RF Discontinued hydrochlorothiazide Discontinued Reason: Doctor's Order 12.5 mg PO DAILY 90 days 90 tabs 1RF R03.0 - Elevated blood-pressure reading, without diagnosis of hypertension Coding Level of Care Code New Pt Level 4 (22780) Complex EM visit Add On G2211 Diagnoses Primary hypertension I10 Hypertension type: primary hypertension CPT Codes EKG - CPT: 06213-[id number], Complete ([id number])
[2025-04-25 09:57] VITALS: BP 140/70; PULSE 62; BMI 28.0
[2025-04-25 10:07] VITALS: BP 142/86; BP 143/83; PULSE 69; PULSE 71
--- OUTSIDE RECORDS SUMMARY | 2025-04-25 10:29 | XMS_ITS | Encounter Summary ---
Author Organization [facility] Address [address] [place] [phone] Phone Care Team Providers Care Claims Coordinator Name Role Phone Unavailable Primary Care Provider Unavailabl e Encounter Details Date Type Department Care Team (Late st Contact Info) Description 08/09/2016 [place]ation [facility] [place] [address] [place] [address] Family Medicine, Physician [address] [place] [address] Social History Tobacco Use Types [...]
--- OUTSIDE RECORDS SUMMARY | 2025-04-25 10:29 | XMS_ITS | Clinical Summary ---
Author Organization [facility] Address [address] [place] [address] Care Team Providers Care Food And Beverage Associate Name Role Phone Unavailable Primary Care Provider [...]
== END 2025-04-25 10:36 | disposition home or self-care (01) ==
LOC: HO.HCS 09:53
PROVIDERS: PCP Physician Assistant; Visit Provider Internal Medicine Cardiovascular Disease
DX: I10 Essential (primary) hypertension (principal)
CPT/HCPCS: 93010; 99204

== ENCOUNTER → 2025-04-25 09:52 | Outpatient (BNVA) | payer BC, SELFPAY | PROVIDERS: PCP Physician Assistant; Visit Provider Internal Medicine Cardiovascular Disease | DX: I10 Essential (primary) hypertension (principal) | CPT/HCPCS: 93005 ==

== ENCOUNTER 2025-04-27 10:25 | Outpatient (REF) | payer BC, SELFPAY ==
[2025-04-27 10:53] LABS: Hematocrit 45.0 % (42.0-52.0); Hemoglobin 15.9 g/dl (14.0-18.0); Mean Corpuscular HGB Conc 35.3 g/dl (31.0-36.0); Mean Corpuscular Hemoglobin 30.2 pg (27.0-33.0); Mean Corpuscular Volume 85.4 fL (80.0-98.0); NRBC Abs Auto 0.000 X10*3/uL (0.0-0.012); NRBC Pct Auto 0.0 /100WBC (0.0-0.2); Platelet Count 216 X10*3/uL (160-400); Red Blood Count 5.27 X10*6/uL (4.60-5.80); White Blood Count 6.7 X10*3/uL (4.8-10.8)
--- OUTSIDE RECORDS SUMMARY | 2025-04-27 11:05 | XMS_ITS | Clinical Summary ---
Author Organization [facility] Address [address] [place] [address] Care Team Providers Care Sap Developer Name Role Phone Unavailable Primary Care Provider [...]
[2025-04-27 11:26] LABS: Alanine Aminotransferase 44 U/L (0-40); Albumin Level 4.9 g/dL (3.5-5.0); Alkaline Phosphatase 58 U/L (39-117); Anion Gap 13 (12-20); Aspartate Amino Transferase 44 U/L (5-37); Blood Urea Nitrogen 29 mg/dL (9-16); Calcium 9.1 mg/dL (8.4-10.2); Carbon Dioxide 29 mmol/L (22-29); Chloride 102 mmol/L (96-108); Estimated Glomerular Filt Rate > 60; Potassium 3.7 mmol/L (3.3-5.1); Sodium 140 mmol/L (135-145); Total Protein 7.4 g/dL (6.5-8.0)
[2025-05-02 14:42] LABS: Plasma Renin Activity 7.87 ng/mL/h (0.25-5.82)
[2025-05-02 15:23] LABS: Metanephrine, Free 31 pg/mL (<=57); Normetanephrines, Free 131 pg/mL (<=148); Total Metanephrine, Free 162 pg/mL (<=205)
== END 2025-04-27 10:26 | disposition home or self-care (01) ==
LOC: HO.LAB 10:25
PROVIDERS: Absent Provider Internal Medicine Cardiovascular Disease; PCP Physician Assistant; Visit Provider Physician Assistant
DX: I10 Essential (primary) hypertension (principal)
CPT/HCPCS: 36415; 80053; 82088; 82533; 83835; 84443; 85027

== ENCOUNTER 2025-06-20 08:06 | Outpatient (REF) | payer BC, SELFPAY ==
--- NOTE | ~2025-06-20 | US_ITS ---
CLINICAL HISTORY: I10 - Essential (primary) hypertension Renal duplex ultrasound Comparison: None provided Technique: Real time duplex ultrasound imaging was performed by the crime victim specialist. Multiple branch sales and service representative static images were saved for review. Findings: Aorta: Normal waveform, 52.5 cm/s. Right kidney: Normal size and echotexture, 9.5 cm length. No calculus, mass or hydronephrosis. Main renal artery peak systolic velocities: Proximal: 122 cm/s Mid: 133 cm/s Distal: 151 cm/s Segmental resistive index: 0.58-0.63, within normal range. RAR: 2.9. Main renal vein: Patent. Left kidney: Normal size and echotexture, 9.2 cm length. No calculus, mass or hydronephrosis. Main renal artery peak systolic velocities: Proximal: 109 cm/s Mid: 93.2 cm/s Distal: 106 cm/s Segmental resistive index: 0.61-0.68, within normal range. RAR: 2.1. Main renal vein: Patent. Impression: 1. Normal renal artery duplex This document has been electronically signed by: Milagro Whaley MD on 06/20/2025 16:24:03
== END 2025-06-20 08:07 | disposition home or self-care (01) ==
LOC: HO.US 08:06
PROVIDERS: PCP Physician Assistant; Visit Provider Internal Medicine Cardiovascular Disease
DX: I10 Essential (primary) hypertension (principal)
CPT/HCPCS: 93975

== ENCOUNTER → 2025-06-20 08:16 | Outpatient (BNV) | payer BC, SELFPAY | PROVIDERS: PCP Physician Assistant; Visit Provider Radiology Diagnostic Radiology | DX: I10 Essential (primary) hypertension (principal) | CPT/HCPCS: 93975 ==

== ENCOUNTER → 2025-08-04 08:47 | Outpatient (REF) | payer BC, SELFPAY ==
--- OUTSIDE RECORDS SUMMARY | 2025-08-04 09:13 | XMS_ITS | Encounter Summary ---
Author Organization [facility] Address [address] [place] [address] Phone Care Team Providers Care Excellence Consultant Name Role Phone Unavailable Primary Care Provider Unavailabl e Encounter Details Date Type Department Care Team (Late st Contact Info) Description 05/08/2017 Conversion Encounter [facility] - [address] [address] Social History Tobacco Use Types Packs/Day Years [...]
--- OUTSIDE RECORDS SUMMARY | 2025-08-04 09:13 | XMS_ITS | Encounter Summary ---
Author Organization [facility] Address [address] [place] [address] Phone Care Team Providers Care Check Processor Name Role Phone Unavailable Primary Care Provider Unavailabl e Encounter Details Date Type Department Care Team (Late st Contact Info) Description 04/10/2012 Documentation [facility] [place] [address] [place] [address] Family Medicine, Physician [address] [place] [address] Social History Tobacco Use Types Packs/Day Years Used Date Smoking Tobacco: Never Assessed Sex and Gender Information Value Date Recorded Sex Assigned at Not on file Legal Sex Male 5:00 PM EDT Gender Identity Not on file Sexual Orientation Not on file documented as of this encounter Plan of Treatment Not on file documented as of this encounter Visit Diagnoses Not on filedocumented in this encounter
--- OUTSIDE RECORDS SUMMARY | 2025-08-04 09:13 | XMS_ITS | Encounter Summary ---
Author Organization [facility] Address [address] [place] [address] Phone Care Team Providers Care Professional Wrestler Name Role Phone Unavailable Primary Care Provider Unavailabl e Encounter Details Date Type Department Care Team (Late st Contact Info) Description 04/10/2012 Documentation [facility] Family Medicine [address] [place] [address] Family Medicine, Physician [address] [place] [address] Social History Tobacco Use Types [...]
--- OUTSIDE RECORDS SUMMARY | 2025-08-04 09:13 | XMS_ITS | Encounter Summary ---
Author Organization [facility] Address [address] [place] [phone] Phone Care Team Providers Care Dryer Operator Name Role Phone Unavailable Primary Care Provider Unavailabl e Encounter Details Date Type Department Care Team (Late st Contact Info) Description 08/09/2016 Documentation [facility] [place] [address] [place] [address] Family Medicine, Physician [address] [place] [address] Social History Tobacco Use Types [...]
--- OUTSIDE RECORDS SUMMARY | 2025-08-04 09:13 | XMS_ITS | Encounter Summary ---
Author Organization [facility] Address [address] [place] [address] Phone Care Team Providers Care Certified Professional Coder Name Role Phone Unavailable Primary Care Provider Unavailabl e Encounter Details Date Type Department Care Team (Late st Contact Info) Description 08/02/2015 Documentation [place] [facility] [address] [place] [address] Family Medicine, Physician [address] [place] [address] Social History Tobacco Use Types [...]
--- OUTSIDE RECORDS SUMMARY | 2025-08-04 09:13 | XMS_ITS | Encounter Summary ---
Author Organization [facility] Address [address] [place] [address] Phone Care Team Providers Care Pain Management Nurse Name Role Phone Unavailable Primary Care Provider Unavailabl e Encounter Details Date Type Department Care Team (Late st Contact Info) Description 04/16/2013 Documentation [facility] [place] [address] [place] [address] Family Medicine, Physician [address] [place] [address] Social History Tobacco Use Types [...]
--- OUTSIDE RECORDS SUMMARY | 2025-08-04 09:13 | XMS_ITS | Encounter Summary ---
Author Organization [facility] Address [address] [place] [address] Phone Care Team Providers Care Restaurant Hostess Name Role Phone Unavailable Primary Care Provider Unavailabl e Encounter Details Date Type Department Care Team (Late st Contact Info) Description 04/16/2013 Documentation [facility] [place] [address] [place] [address] Family Medicine, Physician [address] [place] [address] Social History Tobacco Use Types [...]
--- OUTSIDE RECORDS SUMMARY | 2025-08-04 09:13 | XMS_ITS | Encounter Summary ---
Author Organization [facility] Address [address] [place] [address] Phone Care Team Providers Care Weights And Measures Sealer Name Role Phone Unavailable Primary Care Provider Unavailabl e Encounter Details Date Type Department Care Team (Late st Contact Info) Description 10/10/2011 [place] [facility] [place] [address] [place] [address] Family Medicine, Physician [address] [place] [address] Social History Tobacco Use Types [...]
--- OUTSIDE RECORDS SUMMARY | 2025-08-04 09:13 | XMS_ITS | Clinical Summary ---
Author Organization [facility] Address [address] [place] [address] Care Team Providers Care Inspection Clerk Name Role Phone Unavailable Primary Care Provider [...]
--- OUTSIDE RECORDS SUMMARY | 2025-08-04 09:13 | XMS_ITS | Encounter Summary ---
Author Organization [facility] Address [address] [place] [phone] Phone Care Team Providers Care Volunteer Manager Name Role Phone Unavailable Primary Care Provider Unavailabl e Encounter Details Date Type Department Care Team (Late st Contact Info) Description 08/09/2016 Documentation [facility] [place] [address] [place] [address] Family Medicine, Physician [address] [place] [address] Social History Tobacco Use Types [...]
--- OUTSIDE RECORDS SUMMARY | 2025-08-04 09:13 | XMS_ITS | Encounter Summary ---
Author Organization [facility] Address [address] [place] [address] Phone Care Team Providers Care Fisheries Specialist Name Role Phone Unavailable Primary Care Provider Unavailabl e Encounter Details Date Type Department Care Team (Late st Contact Info) Description 10/03/2011 Documentation [facility] [place] [address] [place] [address] Family Medicine, Physician [address] [place] [address] Social History Tobacco Use Types [...]
--- OUTSIDE RECORDS SUMMARY | 2025-08-04 09:13 | XMS_ITS | Encounter Summary ---
Author Organization [facility] Address [address] [place] [phone] Phone Care Team Providers Care Thread Puller Name Role Phone Unavailable Primary Care Provider Unavailabl e Encounter Details Date Type Department Care Team (Late st Contact Info) Description 08/02/2015 Documentation [facility] [place] [address] [place] [address] Family Medicine, Physician [address] [place] [address] Social History Tobacco Use Types [...]
--- OUTSIDE RECORDS SUMMARY | 2025-08-04 09:13 | XMS_ITS | Encounter Summary ---
Author Organization [facility] Address [address] [place] [phone] Phone Care Team Providers Care Telephone Engineer Name Role Phone Unavailable Primary Care Provider Unavailabl e Encounter Details Date Type Department Care Team (Late st Contact Info) Description 05/28/2011 Documentation [facility] [address] [place] [address] Family Medicine, Physician [address] [place] [address] Social History Tobacco Use Types [...]
--- OUTSIDE RECORDS SUMMARY | 2025-08-04 09:13 | XMS_ITS | Encounter Summary ---
Author Organization [facility] Address [address] [place] [phone] Phone Care Team Providers Care Acetylene Gas Compressor Name Role Phone Unavailable Primary Care Provider Unavailabl e Encounter Details Date Type Department Care Team (Late st Contact Info) Description 10/03/2011 [place] [facility] [place] [address] [place] [address] Family Medicine, Physician [address] [place] [address] Social History Tobacco Use Types [...]
--- OUTSIDE RECORDS SUMMARY | 2025-08-04 09:13 | XMS_ITS | Encounter Summary ---
Author Organization [facility] Address [address] [place] [address] Phone Care Team Providers Care Water Sander Name Role Phone Unavailable Primary Care Provider Unavailabl e Encounter Details Date Type Department Care Team (Late st Contact Info) Description 07/19/2014 Documentation [facility] [place] [address] [place] [address] Family Medicine, Physician [address] [place] [address] Social History Tobacco Use Types [...]
--- OUTSIDE RECORDS SUMMARY | 2025-08-04 09:13 | XMS_ITS | Clinical Summary ---
Author Organization [facility] Address [address] [place] [address] Phone Care Team Providers Care Cnc Service Technician Name Role Phone Unavailable Primary Care Provider Unavailabl e Allergies No known active allergies Medications No known medications Active Problems Problem Noted Date Diagnosed Date Eczema 12/26/2009 Resolved Problems Problem Noted Date Diagnosed Date Resolved Date Mild intermittent asthma without complication 01/30/20 11 09/01/2018 Immunizations Immunization Administration Dates Next Due DTaP 5 11/13/2006, 4,05/24/2003,03/11,2002 H1N1 10/16/2009 HPV Vaccine 9 Valent 08/01/2015 HPV, Quadrivalent 07/15/2014 Hep A, ped/adol 08/01/2015,01/29/2011 Hep B, ped/adol 08/02/2003,2002,2002 Hib (PRP-T) 02/17/2004, 3,03/11/2003,12/29 IPV 11/13/2006, 3,03/11/2003,12/29 Influenza Split 10/02/2011 Influenza, injectable, quadrivalent 08/01/2015 Influenza, injectable, quadr ivalent, preservative free 09/01/2018,08/28/2017,08/08/2016,07/15 Influenza, intranasal, trivalent 06/07/2010 MMR 11/03/2003 MMRV 11/13/2006 Meningococcal Conj (Menactra) MCV4P 07/15/2014 Pneumococcal Conjugate 05/24/2003,03/11/2003,05/2003 Tdap 07/15/2014 Varicella 11/03/2003 Family History Medical History Relation Name Comments No Known Problems Brother 1 Fredrick No Known Problems Brother 2 nirmal JOSH disease Father albino Migraines Father albino Deafness Maternal Grandfather Developmental delay Maternal Grandmother Asthma Mother kailash Hyperlipidemia Other 1 both GP Obesity Other 1 both GP Developmental delay Paternal Grandmother Relation Name Status Comments Brother 1 Fredrick Alive Brother: Alive and well, Alive and well Brother 2 nirmal Alive Brother: Alive and well, Alive and well Father albino Alive Father: Migrain es, GERD Maternal Grandfather Materna l grandfather: Deafness Maternal Grandmother Mother kailash Alive Mother: Asthma Other 1 both GP grandparents aubrey th si: Obesity Other 2 both grandmothe rs: Diabetes mellitus Other 3 granparents bot h si: Elevated cholesterol Other 4 No family histo ry of Developmental dislocation of hip, No family history of ADD/ADHD, No family history of Sudden /ND under age 55, No family history of Autism, No family history of Seizure disorder, No family history of Strabismus/amblyopia Paternal Grandmother Social History Tobacco Use Types Packs/Day Years Used Date Smoking Tobacco: Never Smokeless Tobacco: Never Comments:Never smoker Alcohol Use Standard Drinks/Week Comments No 0 (1 standard drink = 0.6 oz pur e alcohol) Hunger/Food Answer Date Recorded No 07/05/2019 Stable Housing Answer Date Recorded 0 07/05/2019 Transportation Concerns Answer Date Rec orded No 07/05/2019 Hazards in Home Answer Date Recorded No 07/05/2019 Financing Utilities Answer Date Recorde d No 07/05/2019 Safety at Home Answer Date Recorded No 07/05/2019 Outside Support Answer Date Recorded No 07/05/2019 Understanding Health Concerns Answer Da te Recorded No 07/05/2019 Financing Health Concerns Answer Date R ecorded No 07/05/2019 Missing School or Work Answer Date Rocael rded No 07/05/2019 Sex and Gender Information Value Date Recorded Sex Assigned at Not on file Legal Sex Male 5:00 PM EDT Gender Identity Not on file Sexual Orientation Not on file Last Filed Vital Signs Vital Sign Reading Time Taken Comments Blood Pressure 125/74 09/01/2018 3:00 PM EST Pulse 60 09/01/2018 3:00 PM EST Temperature 36.2 C (97.2 F) 08/08/2016 12:00 AM EST Respiratory Rate - - Oxygen Saturation - - Inhaled Oxygen Concentration - - Weight 57.7 kg (127 lb 4 oz) 09/01/2018 3:00 PM EST Height 168.9 cm (5' 6.5 ) 09/01/2018 3:00 PM EST Body Mass Index 20.23 09/01/2018 3:00 PM EST Plan of Treatment Health Maintenance Due Date Last Done Comments Men B Vaccine (1 of 2 - Standard) 2018 DTaP,Tdap,and Td Vaccines (7 - Td or Tdap) 07/15/2024 07/15/2014, 11/13/2006, 05/18/2004, Additional history exists Influenza Vaccines (#1) 2025 09/01/20 18, 08/28/2017, 08/08/2016, Additional history exists COVID-19 Vaccine ( season) 2025 Pneumococcal Vaccine Aged Out 05/24/2003, 03/11/2003, 2002 No longer eligible based on patient's age to complete this topic Hepatitis B Vaccines Completed 08/02/2003, 2002, 2002 HIB Vaccines Completed 02/17/2004, 10/2002, 03/11/2003, Additional history exists IPV Vaccines Completed 11/13/2006, 07/23, 03/11/2003, Additional history exists MMR Vaccines Completed 11/13/2006, 11/03/2003 Varicella Vaccines Completed 11/13/2006, 11/03/2003 Meningococcal Vaccine Aged Out 07/15/2014 No sergio josh eligible based on patient's age to complete this topic HPV Vaccines Completed 08/01/2015, 07/15/2014 Hepatitis A Vaccines Completed 08/01/2015, 01/30/20 11 Insurance [facility]
--- OUTSIDE RECORDS SUMMARY | 2025-08-04 09:13 | XMS_ITS | Encounter Summary ---
Author Organization [facility] Address [address] [place] [address] Phone Care Team Providers Care Sorter/Assay Tech Name Role Phone Unavailable Primary Care Provider Unavailabl e Encounter Details Date Type Department Care Team (Late st Contact Info) Description 07/19/2014 Documentation [facility] [place] Family Medicine [address] [place] [address] Family Medicine, Physician [address] [place] [address] Social History Tobacco Use Types [...]
--- OUTSIDE RECORDS SUMMARY | 2025-08-04 09:13 | XMS_ITS | Encounter Summary ---
Author Organization [facility] Address [address] [place] [address] Phone Care Team Providers Care Supervisor Of Way Name Role Phone Unavailable Primary Care Provider Unavailabl e Encounter Details Date Type Department Care Team (Late st Contact Info) Description 04/16/2013 Documentation [facility] [place] Family Medicine [address] [place] [address] Family Medicine, Physician [address] [place] [address] Social History Tobacco Use Types [...]
--- OUTSIDE RECORDS SUMMARY | 2025-08-04 09:13 | XMS_ITS | Encounter Summary ---
Author Organization [facility] Address [address] [place] [address] Phone Care Team Providers Care Api Architect Name Role Phone Unavailable Primary Care Provider Unavailabl e Encounter Details Date Type Department Care Team (Late st Contact Info) Description 08/09/2016 Documentation [facility] [place] Family Medicine [address] [place] [address] Family Medicine, Physician [address] [place] [address] Social History Tobacco Use Types [...]
--- OUTSIDE RECORDS SUMMARY | 2025-08-04 09:13 | XMS_ITS | Encounter Summary ---
Author Organization [facility] Address [address] [place] [address] Phone Care Team Providers Care Manager Pest Name Role Phone Unavailable Primary Care Provider Unavailabl e Encounter Details Date Type Department Care Team (Late st Contact Info) Description 07/21/2014 Documentation [facility] [place] Family Medicine [address] [place] [address] Family Medicine, Physician [address] [place] [address] Social History Tobacco Use Types [...]
== END ==
LOC: HO.SL 08:47
PROVIDERS: PCP Physician Assistant; Visit Provider Internal Medicine Cardiovascular Disease
DX: R40.0 Somnolence (principal); I10 Essential (primary) hypertension
CPT/HCPCS: 95806

== ENCOUNTER → 2025-08-04 08:56 | Outpatient (BNV) | payer BC, SELFPAY | PROVIDERS: PCP Physician Assistant; Visit Provider Psychiatry & Neurology Neurology | DX: I10 Essential (primary) hypertension (principal); R40.0 Somnolence | CPT/HCPCS: 95806 ==

== ENCOUNTER 2025-09-21 11:25 | Outpatient (AMB) | payer BC, SELFPAY ==
--- NOTE | 2025-09-21 11:51 | A.OFFVIS_ITS ---
Vital Signs 09/21/25 11:52 Height 5 ft 7 in Weight 168 lb 6 oz BMI 26.4 BP 144/84 H Blood Pressure Location Lt brachial Position Sitting Pulse 64 Pulse Source Pulse Oximeter Pulse Oximetry (%) 96 Oxygen Delivery Method Room Air Intake Visit Reasons: INP-Obstructive sleep apnea (adult) (pediatric) Intake Note: Patient presents [employer]. He does have deviated nasal septum history and says that it although he sleeps 8 hours a night he does feel headaches when he wakes up in the morning. He does also has some daytime tiredness. HST in chart(AHI- 7.4, CUATE-88%) NO hard time falling/staying asleep. Goes to bed at 11-12 wakes up 8-9am wakes up 1time a night. Occasional naps1-2hrs. Morning headaches that go away through out the day. Accompanied by: Self / Same As Patient Allergies No Known Allergies Allergy (Verified 09/21/25 11:59) HPI Comments Details: 24 year old male with HTN is a new patient referral to us for sleep difficulties by his PCP. PMH nasal septum deviation and septoplasy in Aug 2021 [facility] note reviewed, h/o congestion chronic allergies and asthma. He has been having sporadic episodes of high blood pressure 170s for the past year. Today his blood pressure is 144/84 since starting hctz 25mg daily in the November 2024. He thinks he has white coat syndrome. He snores loudly, gasps for air, has moring headaches lasting for hours. He has vivid dreams, which are fear inducing. He takes 2 hour naps daily due to chronic fatigue. He goes to bed at 11pm and wakes up at 7am to 9am, at [employer], he is in a doctorate program for PT, he graduates January 2027. He started taking sertraline 150mg since Apr 2025 and anxiety has improved, no longer having panic attacks with overheating, palpitations, sweating and bp increases in difficult social issues, he is a very private individual. Meditates and uses boxed breathi ng or sits with the feelings and emotions. His mood is otherwise relaxed and comfortable. He is learning to balance school work and personal life as this can be difficult due to his intensive program.Diet is stable trying to lose weight.He has no difficulties staying asleep or falling asleep. He lifts weight and does cardio, 15min to hour on the stair master and or treadmill 2meters/ miles. He started seeing a therapist weekly, and was started on trazadone 25mg po BID most days since 3 weeks ago, and discontinued the hydroxyzine. [facility] Medical History Deviated septum Mild persistent asthma Social History Housing: House Alcohol intake: never Patient Tobacco Use Status: Never used Tobacco e-Cigarette/Vaping Use: Never Used service: No Current occupational status: employed Current occupation: multimedia producer student Cognitive needs: No Hearing needs: No Vision needs: No Physical Exam Vital Signs: Last Vital Signs Pulse 64 09/21/25 11:52 BP 144/84 H 09/21/25 11:52 Pulse Ox 96 09/21/25 11:52 Oxygen Delivery Method Room Air 09/21/25 11:52 BMI result Body Mass Index 26.4 Const General: cooperative, comfortable and no acute distress Nutritional Appearance: average body habitus Orientation/consciousness: patient oriented x3 HEENT Face and sinus: Yes face symmetric Mouth: tongue normal Teeth and gingiva: other (mallampti score is 4) Eyes Pupils: Equal, round and reactive pupils present Neck Neck: Yes full ROM Resp Effort & Inspection: normal respiratory effort and able to speak in complete sentences Neuro General: patient oriented x3 and moves all extremities Cranial nerves: Yes Equal, round and reactive pupils present, Yes Normal accommodation reflex present, Yes Normal facial strength present, Yes Midline tongue present, Yes Ability to bilaterally rotate head present and Yes Ability to bilaterally elevate shoulders present Cognition (Neuro): normal cognition Gait exam (Neuro): Normal gait present Motor exam (neuro): 5/5 motor strength present throughout and Normal motor muscle tone present throughout Psych Appearance: grossly normal Speech and movement: Normal speech and movement present Affect: normal affect Attitude: cooperative Thought process: Normal thought process present Thought content: Normal thought content present Insight: Good insight present (Psych) Results Reviewed Results Reviewed: Test Result Flag Reference Aldosterone 18 see note ng/dL Unable to flag abnormal result(s), please refer to reference range(s) below: Adult Reference Ranges for Aldosterone, LC/MS/MS: Upright 8:00 - 10:00 am < or = 28 ng/dL Upright 4:00 - 6:00 pm < or = 21 ng/dL Supine 8:00 - 10:00 am 3 - 16 ng/dL THIS TEST WAS PERFORMED AT: [facility]/[address] CAROLE ELMORE MD,PHD Plasma Florin Act. 7.87 H 0.25-5.82 ng/mL/h Aldost/Renin 2.3 0.9-28.9 Ratio [facility] septoplasyt AUG 2021 [address]. Henriquez note. Labs 04/2025 reviewed with pt. Assessment & Plan Assessment & Plan (1) Chronic fatigue: Code(s): R53.82 - Chronic fatigue, unspecified Category: Medical (2) Excessive daytime sleepiness: Code(s): G47.19 - Other hypersomnia Category: Medical Plan Chronic fatigue HST r/o THOR HTN being followed with Dr. Zakiya Lu and PCP currently on 25mg HCTZ, bp is el evated today. Pt instructed to increase water intake and f/u with pcp. Labs reviewed with pt Renin is 7.8 elevated, BUN 29 elevated has a Renal artery US pending per pt, though not clear if he scheduled with radiology, will defer to PCP. Denies fh of addisons or endocrine disorders, anemias. F/U in 3 months. Orders: Orders Ferritin Today G47.19 - Other hypersomnia, R53.82 - Chronic fatigue, unspecified Vitamin B12 and Folate Today G47.19 - Other hypersomnia, R53.82 - Chronic fatigue, unspecified Homocysteine Today G47.19 - Other hypersomnia, G47.9 - Sleep disorder, unspecified, R53.82 - Chronic fatigue, unspecified, R53.83 - Other fatigue Vitamin D 25-OH Total Today G47.19 - Other hypersomnia, R53.82 - Chronic fatigue, unspecified Methylmalonic Acid Today G47.19 - Other hypersomnia, G47.9 - Sleep disorder, unspecified, R53.82 - Chronic fatigue, unspecified, R53.83 - Other fatigue Patient Instructions: Please complete the following fasting labs to rule out deficiencies. CBC/CMP/ B12/ Vit D/ TSH/ Homocysteine and MMA/ Ferritin. Sleep Hygiene provided: set a scheduled bedtime and wake time to help regulate the circadian rhythm and balance the release of pituitary hormones. Sleep in a dark room, temperatures below 68 degrees, and no devices n bed. Limit caffeinated products 6 hours prior to bed, and limit fluids 2-4 hours prior to bed. Gentle night yoga, diffusing essential oils, and playing soft music can be relaxing. Coding Level of Care Code New Pt Level 4 (16671) Diagnoses Chronic fatigue R53.82 Excessive daytime sleepiness G47.19
[2025-09-21 11:52] VITALS: BP 144/84; PULSE 64; O2SAT 96; BMI 26.4
--- OUTSIDE RECORDS SUMMARY | 2025-09-21 13:05 | XMS_ITS | Encounter Summary ---
Author Organization [facility] Address [address] [place] [address] Phone Care Team Providers Care Impregnator And Drier Name Role Phone Unavailable Primary Care Provider Unavailabl e Encounter Details Date Type Department Care Team (Late st Contact Info) Description 04/16/2013 Documentation [facility] [place] Family Medicine [address] [place] [address] Family Medicine, Physician [address] [place] [address] Social History Tobacco Use Types [...]
--- OUTSIDE RECORDS SUMMARY | 2025-09-21 13:05 | XMS_ITS | Encounter Summary ---
Author Organization [facility] Address [address] [place] [address] Phone Care Team Providers Care Gaming Commissioner Name Role Phone Unavailable Primary Care Provider Unavailabl e Encounter Details Date Type Department Care Team (Late st Contact Info) Description 04/16/2013 [place]ation [facility] [place] [address] [place] [address] Family Medicine, Physician [address] [place] [address] Social History Tobacco Use Types [...]
--- OUTSIDE RECORDS SUMMARY | 2025-09-21 13:05 | XMS_ITS | Encounter Summary ---
Author Organization [facility] Address [address] [place] [address] Phone Care Team Providers Care Industrial Maintenance Mechanic Name Role Phone Unavailable Primary Care Provider Unavailabl e Encounter Details Date Type Department Care Team (Late st Contact Info) Description 07/19/2014 [place] [facility] [place] [address] [place] [address] Family Medicine, Physician [address] [place] [address] Social History Tobacco Use Types [...]
--- OUTSIDE RECORDS SUMMARY | 2025-09-21 13:05 | XMS_ITS | Clinical Summary ---
Author Organization [facility] Address [address] [place] [address] Phone Care Team Providers Care Ovens Supervisor Name Role Phone Unavailable Primary Care Provider [...] of ADD/ADHD, No family history of Sudden /ME under age 55, No family history of [...] A Vaccines Completed 08/01/2015, 01/30/20 11 Insurance [facility]
--- OUTSIDE RECORDS SUMMARY | 2025-09-21 13:05 | XMS_ITS | Encounter Summary ---
Author Organization [facility] Address [address] [place] [address] Phone Care Team Providers Care Agency Sales Management Assistant Name Role Phone Unavailable Primary Care Provider Unavailabl e Encounter Details Date Type Department Care Team (Late st Contact Info) Description 07/21/2014 Documentation [facility] [place] Family Medicine [address] [place] [address] Family Medicine, Physician [address] [place] [address] Social History Tobacco Use Types [...]
--- OUTSIDE RECORDS SUMMARY | 2025-09-21 13:05 | XMS_ITS | Encounter Summary ---
Author Organization [facility] Address [address] [place] [address] Phone Care Team Providers Care Certified Professional Ergonomist Name Role Phone Unavailable Primary Care Provider Unavailabl e Encounter Details Date Type Department Care Team (Late st Contact Info) Description 08/09/2016 Documentation [facility] [place] Family Medicine [address] [place] [address] Family Medicine, Physician [address] [place] [address] Social History Tobacco Use Types [...]
--- OUTSIDE RECORDS SUMMARY | 2025-09-21 13:05 | XMS_ITS | Encounter Summary ---
Author Organization [facility] Address [address] [place] [address] Phone Care Team Providers Care Corrections Sergeant Name Role Phone Unavailable Primary Care Provider Unavailabl e Encounter Details Date Type Department Care Team (Late st Contact Info) Description 04/10/2012 Documentation [facility] [place] Family Medicine [address] [place] [address] Family Medicine, Physician [address] [place] [address] Social History Tobacco Use Types [...]
--- OUTSIDE RECORDS SUMMARY | 2025-09-21 13:05 | XMS_ITS | Encounter Summary ---
Author Organization [facility] Address [address] [place] [address] Phone Care Team Providers Care Perinatal Social Worker Name Role Phone Unavailable Primary Care Provider Unavailabl e Encounter Details Date Type Department Care Team (Late st Contact Info) Description 08/02/2015 [place] [facility] [place] [address] [place] [address] Family Medicine, Physician [address] [place] [address] Social History Tobacco Use Types [...]
--- OUTSIDE RECORDS SUMMARY | 2025-09-21 13:05 | XMS_ITS | Encounter Summary ---
Author Organization [facility] Address [address] [place] [address] Phone Care Team Providers Care Telecommunication Operator Name Role Phone Unavailable Primary Care Provider Unavailabl e Encounter Details Date Type Department Care Team (Late st Contact Info) Description 04/16/2013 [place] [facility] [place] [address] [place] [address] Family Medicine, Physician [address] [place] [address] Social History Tobacco Use Types [...]
--- OUTSIDE RECORDS SUMMARY | 2025-09-21 13:05 | XMS_ITS | Encounter Summary ---
Author Organization [facility] Address [address] [place] [address] Phone Care Team Providers Care Reviewer Sales Name Role Phone Unavailable Primary Care Provider Unavailabl e Encounter Details Date Type Department Care Team (Late st Contact Info) Description 05/08/2017 Conversion Encounter [facility] - [address] [address] Social History Tobacco Use Types Packs/Day Years [...]
--- OUTSIDE RECORDS SUMMARY | 2025-09-21 13:05 | XMS_ITS | Encounter Summary ---
Author Organization [facility] Address [address] [place] [address] Phone Care Team Providers Care Field Organizer Name Role Phone Unavailable Primary Care Provider Unavailabl e Encounter Details Date Type Department Care Team (Late st Contact Info) Description 04/10/2012 Documentation [facility] [place] [address] [place] [address] Family Medicine, Physician [address] [place] [address] Social History Tobacco Use Types [...]
--- OUTSIDE RECORDS SUMMARY | 2025-09-21 13:05 | XMS_ITS | Encounter Summary ---
Author Organization [facility] Address [address] [place] [address] Phone Care Team Providers Care Pipe Fitter Fire Sprinkler Systems Name Role Phone Unavailable Primary Care Provider Unavailabl e Encounter Details Date Type Department Care Team (Late st Contact Info) Description 10/10/2011 Documentation [facility] [place] Family Medicine [address] [place] [address] Family Medicine, Physician [address] [place] [address] Social History Tobacco Use Types [...]
--- OUTSIDE RECORDS SUMMARY | 2025-09-21 13:05 | XMS_ITS | Encounter Summary ---
Author Organization [facility] Address [address] [place] [address] Phone Care Team Providers Care Peanut Picker Name Role Phone Unavailable Primary Care Provider Unavailabl e Encounter Details Date Type Department Care Team (Late st Contact Info) Description 10/03/2011 [place] [facility] [place] [address] [place] [address] Family Medicine, Physician [address] [place] [address] Social History Tobacco Use Types [...]
--- OUTSIDE RECORDS SUMMARY | 2025-09-21 13:05 | XMS_ITS | Clinical Summary ---
Author Organization [facility] Prior to 02/19/[address] [place] [address] Care Team Providers Care Oil Agent Name Role Phone Unavailable Primary Care Provider [...]
--- OUTSIDE RECORDS SUMMARY | 2025-09-21 13:05 | XMS_ITS | Encounter Summary ---
Author Organization [facility] Address [address] [place] [address] Phone Care Team Providers Care Siderographer Name Role Phone Unavailable Primary Care Provider Unavailabl e Encounter Details Date Type Department Care Team (Late st Contact Info) Description 08/09/2016 Documentation [facility] [place] Family Medicine [address] [place] [address] Family Medicine, Physician [address] [place] [address] Social History Tobacco Use Types [...]
--- OUTSIDE RECORDS SUMMARY | 2025-09-21 13:05 | XMS_ITS | Encounter Summary ---
Author Organization [facility] Address [address] [place] [address] Phone Care Team Providers Care Laboratory Administrative Director Name Role Phone Unavailable Primary Care Provider Unavailabl e Encounter Details Date Type Department Care Team (Late st Contact Info) Description 10/03/2011 Documentation [facility] [place] [address] [place] [address] Family Medicine, Physician [address] [place] [address] Social History Tobacco Use Types [...]
--- OUTSIDE RECORDS SUMMARY | 2025-09-21 13:05 | XMS_ITS | Encounter Summary ---
Author Organization [facility] Address [address] [place] [address] Phone Care Team Providers Care Irrigation Worker Name Role Phone Unavailable Primary Care Provider Unavailabl e Encounter Details Date Type Department Care Team (Late st Contact Info) Description 05/28/2011 Documentation [facility] [address] [place] [address] Family Medicine, Physician [address] [place] [address] Social History Tobacco Use Types [...]
--- OUTSIDE RECORDS SUMMARY | 2025-09-21 13:05 | XMS_ITS | Encounter Summary ---
Author Organization [facility] Address [address] [place] [phone] Phone Care Team Providers Care Seamer Name Role Phone Unavailable Primary Care Provider Unavailabl e Encounter Details Date Type Department Care Team (Late st Contact Info) Description 07/19/2014 Documentation [facility] [place] [address] [place] [address] Family Medicine, Physician [address] [place] [address] Social History Tobacco Use Types [...]
--- OUTSIDE RECORDS SUMMARY | 2025-09-21 13:05 | XMS_ITS | Encounter Summary ---
Author Organization [facility] Address [address] [place] [phone] Phone Care Team Providers Care Rail Specialist Name Role Phone Unavailable Primary Care Provider Unavailabl e Encounter Details Date Type Department Care Team (Late st Contact Info) Description 08/09/2016 Documentation [facility] [place] [address] [place] [address] Family Medicine, Physician [address] [place] [address] Social History Tobacco Use Types [...]
--- OUTSIDE RECORDS SUMMARY | 2025-09-21 13:05 | XMS_ITS | Encounter Summary ---
Author Organization [facility] Address [address] [place] [phone] Phone Care Team Providers Care Licensed Embalmer Supervisor Name Role Phone Unavailable Primary Care Provider Unavailabl e Encounter Details Date Type Department Care Team (Late st Contact Info) Description 08/02/2015 Documentation [facility] [place] Family [place] [address] [place] [address] Family Medicine, Physician [address] [place] [address] Social History Tobacco Use Types [...]
== END 2025-09-21 12:54 | disposition home or self-care (01) ==
LOC: HO.HSMC 11:26
PROVIDERS: PCP Physician Assistant; Visit Provider Physician Assistant Medical
DX: R53.82 Chronic fatigue, unspecified (principal); G47.19 Other hypersomnia
CPT/HCPCS: 99204